=== PATIENT | male | born 1985 ===

== ENCOUNTER 2020-06-29 17:38 | Emergency (ER) | payer SELFPAY ==
[2020-06-29 20:21] VITALS: BP 142/90
--- NOTE | 2020-06-29 21:10 | XRay Report ---
CHEST 2 VIEWS INDICATION / CLINICAL INFORMATION: upper chest pain. 34-year-old male COMPARISON: None available. FINDINGS: SUPPORT DEVICES: None. HEART / MEDIASTINUM: No significant abnormality. LUNGS / PLEURA: No significant pulmonary or pleural abnormality. No pneumothorax. ADDITIONAL FINDINGS: No significant additional findings. IMPRESSION: 1. No acute findings. Signer Name: Earl Arora MD Signed: 06/29/2020 9:06 PM Workstation Name: [id number]
--- NOTE | 2020-06-29 22:25 | Emergency Department Report ---
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 Symptoms appear to be worse with eating although he can tolerate food and water with no limitation he reports no hemoptysis, hematemesis hematochezia no trouble breathing. Ports no fever, chills, sweats. -: Gradual Location: neck, chest Radiation: non-radiation Quality: burning, aching Consistency: intermittent Improves with: none Associated Symptoms: chest pain. denies: loss of appetite, malaise, nausea/vomiting, syncope, weakness - Related Data Previous Rx's Medication Instructions Recorded Last Taken Type Amoxicillin [Trimox CAP] 500 mg PO Q8H #21 capsule 06/29/20 Unknown Rx predniSONE [Deltasone] 50 mg PO QDAY #5 tab 06/29/20 Unknown Rx ED Review of Systems ROS: Stated complaint: CHEST/THROAT/BACK PAIN Other details as noted in HPI Comment: All other systems reviewed and negative ED Past Medical Hx - Past Medical History Previous Medical History?: No - Surgical History Past Surgical History?: No - Social History Smoking Status: Never Smoker Substance Use Type: None - Medications Home Medications: Home Medications Medication Instructions Recorded Confirmed Last Taken Type Amoxicillin [Trimox CAP] 500 mg PO Q8H #21 capsule 06/29/20 Unknown Rx predniSONE [Deltasone] 50 mg PO QDAY #5 tab 06/29/20 Unknown Rx ED Physical Exam - General Limitations: Language Barrier General appearance: alert, in no apparent distress - Head Head exam: Present: atraumatic, normocephalic, normal inspection - Eye Eye exam: Present: normal appearance, PERRL, EOMI Pupils: Present: normal accommodation - ENT ENT exam: Present: mucous membranes moist, TM's normal bilaterally, other (Pharynx is erythema with no significant exudate. Tongue and uvula are midline no increased airway secretions no muffled voice. Left tonsil lymphadenopathy but nontender tenderness is more around the thyroid/larynx region.) - Neck Neck exam: Present: normal inspection, full ROM. Absent: tenderness, meningismus, lymphadenopathy, thyromegaly - Respiratory Respiratory exam: Present: normal lung sounds bilaterally, chest wall tenderness (To the upper chest with palpation to the medial aspect.). Absent: respiratory distress, wheezes, rales, accessory muscle use - Cardiovascular Cardiovascular Exam: Present: regular rate, normal rhythm. Absent: bradycardia, tachycardia, systolic murmur, diastolic murmur, rubs, gallop - GI/Abdominal GI/Abdominal exam: Present: soft, normal bowel sounds. Absent: tenderness, guarding, hypoactive bowel sounds, organomegaly, mass - Rectal Rectal exam: Present: deferred - Extremities Exam Extremities exam: Present: normal inspection, full ROM, normal capillary refill - Back Exam Back exam: Present: normal inspection - Neurological Exam Neurological exam: Present: alert, oriented X3 - Psychiatric Psychiatric exam: Present: normal affect, normal mood - Skin Skin exam: Present: warm, dry, intact, normal color. Absent: rash ED Course Vital Signs 06/29/20 06/29/20 19:51 23:38 Temperature 98.8 F Pulse Rate 67 64 Respiratory 18 17 Rate Blood Pressure 142/90 O2 Sat by Pulse 95 97 Oximetry ED Medical Decision Making - EKG Data EKG shows normal: sinus rhythm Rate: normal - EKG Data Interpretation: normal EKG - Radiology Data Radiology results: report reviewed [address] [place] [id number] XRay Report Signed Patient: JENNIFER FERNANDES MR#: [id number] : 1985 Acct:[id number] Age/Sex: 34 / M ADM Date: 06/29/20 Loc: ED Attending Dr: Ordering Physician: DEANGELO WILLSON Date of Service: 06/29/20 Procedure(s): XR chest routine 2V Accession Number(s): [id number] cc: DEANGELO WILLSON Fluoro Time In Minutes: CHEST 2 VIEWS INDICATION / CLINICAL INFORMATION: upper chest pain. 34-year-old male COMPARISON: None available. FINDINGS: SUPPORT DEVICES: None. HEART / MEDIASTINUM: No significant abnormality. LUNGS / PLEURA: No significant pulmonary or pleural abnormality. No pneumothorax. ADDITIONAL FINDINGS: No significant additional findings. IMPRESSION: 1. No acute findings. Signer Name: Earl Arora MD Signed: 06/29/2020 9:06 PM Workstation Name: [id number] Transcribed By: Dictated By: EARL ARORA III Electronically Authenticated By: EARL ARORA III Signed Date/Time: 06/29/202105 DD/ 04 TD/TT: - Medical Decision Making 34-year-old male presents emerged department complaining of sore throat to the lower throat region that radiates to the upper chest resulting and a dull bandlike pain. Symptoms appear to be worse with eating although he can tolerate food and water with no limitation he reports no hemoptysis, hematemesis hematochezia no trouble breathing. Ports no fever, chills, sweats. Critical care attestation.: If time is entered above; I have spent that time in minutes in the direct care of this critically ill patient, excluding procedure time. ED Disposition Clinical Impression: Sorethroat, Chest pain Disposition: - TO HOME OR SELFCARE Is pt being admited?: No Does the pt Need Aspirin: No Condition: Stable Instructions: Pharyngitis, Heartburn, Nonspecific Chest Pain, Adult, Sore Throat Prescriptions: predniSONE [Deltasone] 50 mg PO QDAY #5 tab Amoxicillin [Trimox CAP] 500 mg PO Q8H #21 capsule Referrals: [facility] [Provider Group] - 3-5 Days
--- NOTE | 2020-06-30 17:53 | Electrocardiograph Report ---
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 No previous ECG available for comparison Electronically Signed On 06-30-2020 17:52:55 EDT by Karsten Titus
== END 2020-06-29 23:38 | disposition home or self-care (01) ==
LOC: ED 17:38
DX: J02.9 Acute pharyngitis, unspecified (principal); Z79.899 Other long term (current) drug therapy
CPT/HCPCS: 71046; 93005; 99283